=== PATIENT | male | born 1995 | race Caucasian/White ===

== ENCOUNTER 2017-10-08 08:01 | Emergency (ER) | payer SELFPAY ==
--- NOTE | 2017-10-08 09:27 | ER Document Report ---
ED ENT - General Chief Complaint: Sore Throat Stated Complaint: SORE THROAT Time Seen by Provider: 10/08/17 09:23 Mode of Arrival: Ambulatory Information source: Patient Notes: 22-year-old male presented to ED for complaint of pain to the right side of his throat for the last 2 days. He states he has taken Tylenol and Motrin as this has not helped. He states he now has pain in his ear from this pain. He states yesterday he had some drainage and blood in his throat. Patient is alert and oriented, respirations regular and unlabored, speaking with clear full sentences, walks with a even steady gait. Patient states she has no difficulty swallowing. - HPI Patient complains to provider of: Throat problem Onset: Other - 2 days Onset/Duration: Gradual Quality of pain: Sharp Severity: Moderate Pain Level: 3 Context: Recent Illness Location of pain: Throat Associated symptoms: Sore throat, Swollen glands. denies: Fever, Stiff neck Similar symptoms previously: No Recently seen / treated by doctor: No - Related Data Allergies/Adverse Reactions: No Known Allergies Allergy (Unverified 10/08/17 08:05) Past Medical History - General Information source: Patient - Social History Smoking Status: Current Every Day Smoker Cigarette use (# per day): Yes Smoking Education Provided: Yes - 4 minutes Frequency of alcohol use: Occasional Drug Abuse: None Lives with: Family Family History: Reviewed & Not Pertinent Patient has suicidal ideation: No Patient has homicidal ideation: No - Past Medical History Cardiac Medical History: Reports: None Pulmonary Medical History: Reports: None EENT Medical History: Reports: None Neurological Medical History: Reports: None Endocrine Medical History: Reports: None Renal/ Medical History: Reports: None Malignancy Medical History: Reports None GI Medical History: Reports: None Musculoskeltal Medical History: Reports None Skin Medical History: Reports None Psychiatric Medical History: Reports: None Traumatic Medical History: Reports: None Infectious Medical History: Reports: None Surgical Hx: Negative Past Surgical History: Reports: None - Immunizations Immunizations up to date: Yes Hx Diphtheria, Pertussis, Tetanus Vaccination: Yes Review of Systems - Review of Systems Constitutional: No symptoms reported EENT: Throat pain, Other - pain with swallowing Cardiovascular: No symptoms reported Respiratory: No symptoms reported Gastrointestinal: No symptoms reported Genitourinary: No symptoms reported Male Genitourinary: No symptoms reported Musculoskeletal: No symptoms reported Skin: No symptoms reported Hematologic/Lymphatic: No symptoms reported Neurological/Psychological: No symptoms reported -: Yes All other systems reviewed and negative Physical Exam - Vital signs Vitals: Temp Pulse Resp BP Pulse Ox 97.8 F 62 16 131/60 H 97 10/08/17 08:07 10/08/17 08:07 10/08/17 08:07 10/08/17 08:07 10/08/17 08:07 Interpretation: Normal - General General appearance: Appears well, Alert - HEENT Head: Normocephalic, Atraumatic Eyes: Normal Pupils: PERRL Ears: Normal External canal: Normal Tympanic membrane: Normal Nasal: Swelling, Clear rhinorrhea Mouth/Lips: Normal Pharynx: Peritonsillar abscess - Small with drainage, Tonsillar hypertrophy. No : Uvular edema, Potential airway comprom. Neck: Anterior cervical chain - Respiratory Respiratory status: No respiratory distress Chest status: Nontender Breath sounds: Normal Chest palpation: Normal - Cardiovascular Rhythm: Regular Heart sounds: Normal auscultation Murmur: No - Abdominal Inspection: Normal Distension: No distension Bowel sounds: Normal Tenderness: Nontender Organomegaly: No organomegaly - Back Back: Normal, Nontender - Extremities General upper extremity: Normal inspection, Nontender, Normal color, Normal ROM , Normal temperature General lower extremity: Normal inspection, Nontender, Normal color, Normal ROM , Normal temperature, Normal weight bearing. No: Vivian's sign - Neurological Neuro grossly intact: Yes Cognition: Normal Orientation: AAOx4 Brandon Coma Scale Eye Opening: Spontaneous Brandon Coma Scale Verbal: Oriented Brandon Coma Scale Motor: Obeys Commands Brandon Coma Scale Total: 15 Speech: Normal Motor strength normal: LUE, RUE, LLE, RLE Sensory: Normal - Psychological Associated symptoms: Normal affect, Normal mood - Skin Skin Temperature: Warm Skin Moisture: Dry Skin Color: Normal Course - Re-evaluation Re-evalutation: 10/08/17 15:42 Patient was treated with steroids and clindamycin in the emergency room and discharged home with prescription for clindamycin. Patient was instructed to follow-up with the ENT by telephone today or tomorrow to schedule a follow-up appointment. Peritonsillar abscess was very small did not need I&D at this time. Consulted Dr. Xavier for this peritonsillar abscess and he agreed that clindamycin and steroids were all the treatment is needed at this time. Patient was discharged home with prescription for clindamycin and instructions to follow-up with the ENT patient was able to verbalize understanding and agreement with treatment plan. - Vital Signs Vital signs: Temp Pulse Resp BP Pulse Ox 98.1 F 65 18 128/65 H 99 10/08/17 10:15 10/08/17 10:15 10/08/17 10:15 10/08/17 10:15 10/08/17 10:15 Discharge - Discharge Clinical Impression: Peritonsillar abscess Condition: Stable Disposition: HOME, SELF-CARE Instructions: Family Physicians / Practices Additional Instructions: Cecy-Tonsillar Abscess You have a cecy-tonsillar abscess, a pus-filled swelling adjacent to the tonsil. Some abscesses may be left to drain on their own, but most require opening or lancing. It may be a couple of days before the abscess is ready to sarah or to differentiate an abscess from just local tissue infection called cellulitis. An antibiotic may prevent spread of the infection and a steroid medication may reduce the swelling. Once the abscess is opened, either on its own or by lancing it, the wound will heal with surprisingly little scar. Depending on the size of an abscess, healing can take one to four weeks. If you develop fever, chills, worsening pain, or increasing swelling in the area, call the doctor or return immediately. The major risk of a cecy- tonsillar abscess is that it may swell so much that it impinges on your airway and can lead to dangerous obstruction of your breathing. If that seems to be developing, you should seek immediate emergency re-evaluation and care. STEROID MEDICATION: You have been given an injection of medicine of the cortisone/steroid class. This medication is used to control inflammation or allergy. It is often continued as a pill for a short period of time, until the acute process subsides. There are usually no side effects from short-term use of cortisone-like medications. Some persons feel an increased sense of well-being and are not sleepy at bedtime. Long-term use of cortisone medications is best avoided, unless required for a severe condition. If your condition does not remit, or relapses after the course of corticosteroid medication, you should consult your physician. Clindamycin You have been given a prescription for the antibiotic clindamycin. It is often prescribed for infections in the mouth, such as dental infections or abscesses, and for skin infections due to MRSA. It's important that you take all the medication, unless instructed otherwise by your physician. Failure to complete the entire course can result in relapse of your condition. Common side effects of antibiotics include nausea, intestinal cramping, or diarrhea. Women may develop vaginal yeast infections, and babies can get yeast (thrush) in the mouth following the use of antibiotics. Contact your physician if you develop significant side effects from this medication. Allergy to this antibiotic can result in hives, wheezing, faintness, or itching. If symptoms of allergy occur, stop the medication and call the doctor. Ibuprofen Ibuprofen is an excellent, safe drug for pain control. In addition, it has potent antiinflammatory effects which are beneficial, especially in the treatment of injuries, arthritis, or tendonitis. It's best to take ibuprofen with food. Persons with ulcer disease or allergy to aspirin should notify their physician of this before taking ibuprofen. Take the medication exactly as prescribed. Don't take additional doses unless instructed to do so by your doctor. If you develop wheezing, shortness of breath, hives, faintness, stomach pain, vomiting, or dark black stools, return for re-evaluation at once. FOLLOW-UP CARE: If you have been referred to a physician for follow-up care, call the physician s office for an appointment as you were instructed or within the next two days. If you experience worsening or a significant change in your symptoms, notify the physician immediately or return to the Emergency Department at any time for re-evaluation. Prescriptions: Ibuprofen 600 mg PO Q6HP PRN #20 tablet PRN Reason: Clindamycin HCl 300 mg PO Q6 #28 capsule Forms: Elevated Blood Pressure, Return to Work Referrals: LLOYD RAINEY DO [ASSOCIATE] - Follow up as needed
[2017-10-08] MEDS ORDERED: DEXAMETHASONE SOD PHOS INJ 10 MG/1 ML VIAL IM ONE (09:56)
[2017-10-08] MEDS ORDERED: CLINDAMYCIN HCL 150 MG CAPSULE PO ONE (09:57)
[2017-10-08 10:22] VITALS: BP 128/65
== END 2017-10-08 10:22 | disposition home or self-care (01) ==
LOC: ER 08:01
DX: J36 Peritonsillar abscess (principal); R59.9 Enlarged lymph nodes, unspecified; F17.210 Nicotine dependence, cigarettes, uncomplicated
CPT/HCPCS: 99283; 96372; 87070; 87880; 87077; J1100